=== PATIENT | female | born 1955 | race Asian ===

== ENCOUNTER 2020-07-10 10:22 | Outpatient (CLI) | payer MEDICARE | END 2020-07-10 23:59 | disposition home or self-care (01) | LOC: CFH 10:22 | PROVIDERS: ATTEND Family Medicine | DX: Z12.31 Encounter for screening mammogram for malignant neoplasm of breast (principal); N95.9 Unspecified menopausal and perimenopausal disorder | CPT/HCPCS: 77063; 77067; 77080 ==